=== PATIENT | female | born 1985 | race Caucasian/White ===

== ENCOUNTER 2018-03-23 22:03 | Emergency (ER) | payer BC ==
[~2018-03-23] VITALS: Ht 180.3 cm; Wt 81.8 kg
[~2018-03-23 22:03] MED LIST: NO HOME MEDICATIONS; ULTRAM 50MG TAB50 MG PO; ZOFRAN 4MG T4 MG/TAB PO
[2018-03-24] MEDS ORDERED: TORADOL 10MG TA10 MG PO (00:05)
[2018-03-24 00:13] LABS: COLLECTION METHOD CLEAN CATCH
[2018-03-24 00:14] LABS: BASO # 0.1 (0.0-0.2); BASO % 0.6 % (0.0-2.0); EOS # 0.3 (0.0-0.7); EOS % 1.4 % (0-4.0); GRAN # 12.6 (1.4-6.5); HEMATOCRIT 39.2 % (37.0-47.0); HEMOGLOBIN 13.5 g/dl (12.5-16.0); LYMPH # 4.9 (1.2-3.4); LYMPH % 25.3 % (20.0-51.0); MEAN CELL VOLUME 85 fl (80.0-100.0); MEAN CORPUSCULAR HEMOGLOBIN 29 pg (27.0-31.0); MEAN CORPUSCULAR HGB CONC 34 g/dl (33.0-37.0); MEAN PLATELET VOLUME 9.4 fl (7.4-10.4); MONO # 1.4 (0.1-0.6); MONO % 7.3 % (1.7-9.3); PLATELET COUNT 303 K/mm3 (130-400); RED BLOOD COUNT 4.62 M/mm3 (4.10-5.30); REDCELL DISTRIBUTION WIDTH-CV 12.6 % (11.5-14.5)
[2018-03-24 00:25] LABS: BILIRUBIN,TOTAL 0.2 mg/dL (0.0-1.0); C-REACTIVE PROTEIN 3.6 mg/dL (0.0-0.9); CREATININE, serum 0.56 mg/dL (0.52-1.25); POTASSIUM 3.8 mmol/L (3.4-5.0); TOTAL PROTEIN 7.7 gm/dL (6.4-8.2)
[2018-03-24 00:32] LABS: PH 8 (5-8); SQUAMOUS EPITHELIAL 0-2 /hpf; URINE APPEARANCE Clear; URINE BACTERIA Rare /hpf; URINE BILIRUBIN Negative (NEGATIVE); URINE BLOOD 1+ (NEGATIVE); URINE COLOR Yellow; URINE GLUCOSE Negative (NEGATIVE); URINE KETONE Negative (NEGATIVE); URINE LEUKOCYTE ESTERASE Negative (NEGATIVE); URINE NITRATE Negative (NEGATIVE); URINE PROTEIN(semi-quant) Negative (NEGATIVE); URINE RBC 0-2 /hpf; URINE UROBILINOGEN Negative (NEGATIVE)
[2018-03-24 02:05] VITALS: BP 110/66; PULSE 84; TEMP 98.9
== END 2018-03-24 02:05 | disposition home or self-care (01) ==
LOC: COL.ER 22:03
PROVIDERS: Nurse Practitioner
DX: R10.31 Right lower quadrant pain (principal); F17.210 Nicotine dependence, cigarettes, uncomplicated; Z86.73 Personal history of transient ischemic attack (TIA), and cerebral infarction without residual deficits; Z90.710 Acquired absence of both cervix and uterus; Z90.89 Acquired absence of other organs; Z88.5 Allergy status to narcotic agent
CPT/HCPCS: Q9967

== ENCOUNTER 2018-05-20 14:31 | Emergency (ER) | payer BC ==
[~2018-05-20] VITALS: Ht 180.3 cm; Wt 81.8 kg
[~2018-05-20 14:31] MED LIST changes: +TORADOL 10MG TA10 MG PO
[2018-05-20 14:39] VITALS: TEMP 99
[2018-05-20] MEDS ORDERED: PENTASA500 MG PO (14:54)
[2018-05-20 15:19] LABS: COLLECTION METHOD CLEAN CATCH
[2018-05-20 15:33] LABS: BASO # 0.1 (0.0-0.2); BASO % 0.7 % (0.0-2.0); EOS # 0.2 (0.0-0.7); EOS % 1.6 % (0-4.0); GRAN # 7.3 (1.4-6.5); GRAN % 59.3 % (42.2-75.2); HEMATOCRIT 40.8 % (37.0-47.0); HEMOGLOBIN 13.8 g/dl (12.5-16.0); LYMPH # 3.7 (1.2-3.4); LYMPH % 30.2 % (20.0-51.0); MEAN CELL VOLUME 86 fl (80.0-100.0); MEAN CORPUSCULAR HEMOGLOBIN 29 pg (27.0-31.0); MEAN CORPUSCULAR HGB CONC 34 g/dl (33.0-37.0); MEAN PLATELET VOLUME 9.6 fl (7.4-10.4); MONO % 7.9 % (1.7-9.3); PLATELET COUNT 282 K/mm3 (130-400); RED BLOOD COUNT 4.76 M/mm3 (4.10-5.30); REDCELL DISTRIBUTION WIDTH-CV 12.6 % (11.5-14.5)
[2018-05-20 15:38] LABS: MUCOUS Present /lpf; PH 6 (5-8); URINE APPEARANCE Clear; URINE BACTERIA None Seen /hpf; URINE BILIRUBIN Negative (NEGATIVE); URINE BLOOD 2+ (NEGATIVE); URINE COLOR Yellow; URINE GLUCOSE Negative (NEGATIVE); URINE KETONE Negative (NEGATIVE); URINE LEUKOCYTE ESTERASE Negative (NEGATIVE); URINE NITRATE Negative (NEGATIVE); URINE PROTEIN(semi-quant) Negative (NEGATIVE); URINE UROBILINOGEN Negative (NEGATIVE)
[2018-05-20 15:40] LABS: ALBUMIN 4.1 gm/dL (3.5-5.0); BILIRUBIN,TOTAL 0.3 mg/dL (0.0-1.0); C-REACTIVE PROTEIN 1.3 mg/dL (0.0-0.9); CALCIUM 9.2 mg/dL (8.4-10.2); CREATININE, serum 0.57 mg/dL (0.52-1.25); POTASSIUM 3.6 mmol/L (3.4-5.0); TOTAL PROTEIN 7.3 gm/dL (6.4-8.2)
[2018-05-20 16:39] VITALS: BP 105/69
[2018-05-20 16:56] VITALS: PULSE 79
[2018-05-20] MEDS ORDERED: ZOFRAN ODT4 MG PO (17:00)
== END 2018-05-20 17:09 | disposition home or self-care (01) ==
LOC: COL.ER 14:31
PROVIDERS: Emergency Medicine
DX: K50.90 Crohn's disease, unspecified, without complications (principal); R11.2 Nausea with vomiting, unspecified; F17.210 Nicotine dependence, cigarettes, uncomplicated; Z90.710 Acquired absence of both cervix and uterus; Z90.89 Acquired absence of other organs; Z98.51 Tubal ligation status; Z88.8 Allergy status to other drugs, medicaments and biological substances
CPT/HCPCS: J1885; J2405; J7030; Q9967

== ENCOUNTER → 2018-06-07 | Outpatient (CLI) | payer BC ==
[~2018-06-07] MED LIST changes: +PENTASA500 MG PO; +ZOFRAN ODT4 MG PO
== END ==
LOC: COL.RAD 06:31
DX: K50.90 Crohn's disease, unspecified, without complications (principal); K29.70 Gastritis, unspecified, without bleeding; K92.1 Melena; R11.0 Nausea; R19.7 Diarrhea, unspecified; R10.9 Unspecified abdominal pain; R63.0 Anorexia
CPT/HCPCS: A9541

== ENCOUNTER → 2018-06-08 | Outpatient (CLI) | payer BC | LOC: COL.RAD 07:14 | DX: K50.90 Crohn's disease, unspecified, without complications (principal); K29.70 Gastritis, unspecified, without bleeding; K92.1 Melena; R63.0 Anorexia ==

== ENCOUNTER → 2018-07-26 | Outpatient (CLI) | payer BC | LOC: COL.RAD 07:03 | DX: K50.90 Crohn's disease, unspecified, without complications (principal); K29.70 Gastritis, unspecified, without bleeding | CPT/HCPCS: A9537 ==

== ENCOUNTER 2019-05-26 14:22 | Emergency (ER) | payer BC, MEDICARE ==
[~2019-05-26] VITALS: Ht 180.3 cm; Wt 81.8 kg
[2019-05-26 14:35] VITALS: BP 126/79
[2019-05-26 14:45] LABS: COLLECTION METHOD CLEAN CATCH
[2019-05-26 14:56] LABS: MUCOUS Present /lpf; PH 6 (5-8); URINE APPEARANCE Clear; URINE BACTERIA Many /hpf; URINE BILIRUBIN Negative (NEGATIVE); URINE BLOOD 2+ (NEGATIVE); URINE COLOR Yellow; URINE GLUCOSE Negative (NEGATIVE); URINE KETONE Negative (NEGATIVE); URINE LEUKOCYTE ESTERASE Negative (NEGATIVE); URINE NITRATE Negative (NEGATIVE); URINE PROTEIN(semi-quant) Negative (NEGATIVE); URINE UROBILINOGEN Negative (NEGATIVE)
[2019-05-26] MEDS ORDERED: HUMIRA(CF)40 MG/0.4 SQ (14:56)
[2019-05-26] MEDS ORDERED: AMOXICILLIN/CLA1 TA1 PO (14:57)
[2019-05-26] MEDS ORDERED: CRESTOR 10MG10 MG PO (14:58)
[2019-05-26] MEDS ORDERED: PLAVIX 75MG TAB75 MG PO (14:58)
[2019-05-26] MEDS ORDERED: NITROSTAT0.3 MG SL (14:59)
[2019-05-26] MEDS ORDERED: PRILOSEC 20MG20 MG PO (15:01)
[2019-05-26 15:35] LABS: BASO # 0.1 (0.0-0.2); BASO % 0.5 % (0.0-2.0); EOS # 0.2 (0.0-0.7); EOS % 1.4 % (0-4.0); GRAN # 7.8 (1.4-6.5); GRAN % 58.3 % (42.2-75.2); HEMATOCRIT 42.9 % (37.0-47.0); HEMOGLOBIN 14.5 g/dl (12.5-16.0); LYMPH # 4.2 (1.2-3.4); LYMPH % 31.7 % (20.0-51.0); MEAN CELL VOLUME 87 fl (80.0-100.0); MEAN CORPUSCULAR HEMOGLOBIN 29 pg (27.0-31.0); MEAN CORPUSCULAR HGB CONC 34 g/dl (33.0-37.0); MEAN PLATELET VOLUME 9.7 fl (7.4-10.4); MONO % 7.7 % (1.7-9.3); PLATELET COUNT 283 K/mm3 (130-400); RED BLOOD COUNT 4.94 M/mm3 (4.10-5.30); REDCELL DISTRIBUTION WIDTH-CV 12.4 % (11.5-14.5)
[2019-05-26 15:50] LABS: ALBUMIN 4.5 gm/dL (3.5-5.0); BILIRUBIN,TOTAL 0.1 mg/dL (0.0-1.0); CALCIUM 9.3 mg/dL (8.4-10.2); CREATININE, serum 0.53 (0.52-1.25); POTASSIUM 3.9 mmol/L (3.4-5.0); TOTAL PROTEIN 7.6 gm/dL (6.4-8.2)
[2019-05-26 17:28] VITALS: PULSE 75; TEMP 97.8
== END 2019-05-26 17:29 | disposition home or self-care (01) ==
LOC: COL.ER 14:22
PROVIDERS: Emergency Medicine; Family Medicine
DX: R82.71 Bacteriuria (principal); K50.90 Crohn's disease, unspecified, without complications; F17.210 Nicotine dependence, cigarettes, uncomplicated; Z87.442 Personal history of urinary calculi; Z90.710 Acquired absence of both cervix and uterus; Z90.89 Acquired absence of other organs; Z79.02 Long term (current) use of antithrombotics/antiplatelets
CPT/HCPCS: A4216; J0696; J2405; J3010; J7030; Q9967

== ENCOUNTER → 2019-12-03 | Outpatient (CLI) | payer MEDICARE ==
[~2019-12-03] MED LIST changes: +AMOXICILLIN/CLA1 TA1 PO; +CRESTOR 10MG10 MG PO; +HUMIRA(CF)40 MG/0.4 SQ; +NITROSTAT0.3 MG SL; +PLAVIX 75MG TAB75 MG PO; +PRILOSEC 20MG20 MG PO
== END ==
LOC: COL.LAB 11:56
DX: K50.90 Crohn's disease, unspecified, without complications (principal)

== ENCOUNTER 2019-12-09 16:05 | Emergency (ER) | payer MEDICARE ==
[~2019-12-09] VITALS: Ht 180.3 cm; Wt 81.4 kg
[2019-12-09 16:15] VITALS: TEMP 98.5
[2019-12-09 17:31] LABS: BASO # 0.1 (0.0-0.2); BASO % 0.7 % (0.0-2.0); EOS # 0.2 (0.0-0.7); EOS % 1.9 % (0-4.0); GRAN % 51.9 % (42.2-75.2); HEMATOCRIT 39.3 % (37.0-47.0); LYMPH # 4.4 (1.2-3.4); LYMPH % 37.7 % (20.0-51.0); MEAN CELL VOLUME 88 fl (80.0-100.0); MEAN CORPUSCULAR HEMOGLOBIN 29 pg (27.0-31.0); MEAN CORPUSCULAR HGB CONC 33 g/dl (33.0-37.0); MEAN PLATELET VOLUME 9.6 fl (7.4-10.4); MONO # 0.9 (0.1-0.6); MONO % 7.5 % (1.7-9.3); PLATELET COUNT 265 K/mm3 (130-400); RED BLOOD COUNT 4.47 M/mm3 (4.10-5.30); REDCELL DISTRIBUTION WIDTH-CV 12.6 % (11.5-14.5)
[2019-12-09 17:43] LABS: ALANINE AMINOTRANSFERASE 32 U/L (9-52); ALBUMIN 4.2 gm/dL (3.5-5.0); ALKALINE PHOSPHATASE 83 U/L (50-136); ANION GAP 9 mmol/L (7-16); AST,SGOT 27 U/L (15-37); BILIRUBIN,TOTAL 0.2 mg/dL (0.0-1.0); BLOOD UREA NITROGEN 8 mg/dL (7-17); CALCIUM 8.9 mg/dL (8.4-10.2); CARBON DIOXIDE 24 mmol/L (22-30); CHLORIDE 108 mmol/L (98-107); CREATININE, serum 0.55 (0.52-1.25); GLUCOSE 92 mg/dL (74-106); POTASSIUM 3.5 mmol/L (3.4-5.0); SODIUM 141 mmol/L (137-145); TOTAL PROTEIN 6.9 gm/dL (6.4-8.2)
[2019-12-09 17:43] LABS: STREP SCREEN NEGATIVE
[2019-12-09 17:45] LABS: C-REACTIVE PROTEIN < 0.5 mg/dL (0.0-0.9)
[2019-12-09] MEDS ORDERED: ZITHROMAX 250M250 MG PO (18:41)
[2019-12-09] MEDS ORDERED: PERCOCET 325 MG1 TA2 PO (18:41)
[2019-12-09 19:06] VITALS: BP 111/77; PULSE 86
== END 2019-12-09 19:06 | disposition home or self-care (01) ==
LOC: COL.ER 16:05
PROVIDERS: Emergency Medicine
DX: J20.9 Acute bronchitis, unspecified (principal); K50.90 Crohn's disease, unspecified, without complications; F17.210 Nicotine dependence, cigarettes, uncomplicated; Z90.710 Acquired absence of both cervix and uterus; Z79.02 Long term (current) use of antithrombotics/antiplatelets
CPT/HCPCS: J7030

== ENCOUNTER 2020-02-22 09:22 | Day surgery (SDC) | payer MEDICARE ==
[~2020-02-22] VITALS: Ht 180.3 cm; Wt 81.0 kg
[2020-02-22] VITALS (8 sets, daily range): BP systolic 91–116; BP diastolic 57–96; PULSE 61–79; TEMP 98.1
[~2020-02-22 09:22] MED LIST changes: +PERCOCET 325 MG1 TA2 PO; +ZITHROMAX 250M250 MG PO
[2020-02-22 10:05] LABS: HEMATOCRIT 40.2 % (37.0-47.0); HEMOGLOBIN 13.7 g/dl (12.5-16.0); MEAN CELL VOLUME 86 fl (80.0-100.0); MEAN CORPUSCULAR HEMOGLOBIN 29 pg (27.0-31.0); MEAN CORPUSCULAR HGB CONC 34 g/dl (33.0-37.0); MEAN PLATELET VOLUME 9.6 fl (7.4-10.4); PLATELET COUNT 264 K/mm3 (130-400); RED BLOOD COUNT 4.67 M/mm3 (4.10-5.30); REDCELL DISTRIBUTION WIDTH-CV 12.5 % (11.5-14.5)
[2020-02-22 10:20] LABS: INR 1.1 (0.8-3.0); PROTHROMBIN TIME 12.1 SECONDS (9.7-12.8)
[2020-02-22 10:21] LABS: CALCIUM 8.9 mg/dL (8.4-10.2); CREATININE, serum 0.51 (0.52-1.25); POTASSIUM 3.9 mmol/L (3.4-5.0)
[2020-02-22 10:22] LABS: PARTIAL THROMBOPLASTIN TIME 37.2 SECONDS (26.0-37.0)
--- NOTE | 2020-02-22 12:15 | NUR ---
PT RECIEVED FROM [facility] VIA BED, ALERT AND ORIENATED X3, CALL LIGHT IN REACH, PT USES PHONE TO CALL FAMILY. TAKES JUICE, AND MEAL ORDERED
--- NOTE | 2020-02-22 13:00 | NUR ---
PT WAS UP ON BSC WITH ASSIST, SAT UP IN BED, ATE LUNCH, NO CHANGES OR C/O
--- NOTE | 2020-02-22 14:15 | NUR ---
RELEASE STARTED ON TR BAND, 2CC INCREMENTS OVER 15 MIN WITH NO BLEEDING, BANDAID OVER SITE, PT STATES SITE IS SORE. REVIEWED DISCHARGE INST. WITH PT ON FOLLOWUP APPT NEXT WEEK, PT WILL CALL OFFICE ON . PT IS TO STOP PLAVIX NOW, AND NO OTHER MED CHANGES. REVIEWED SITE CARE AND ACTIVITY WITH VERBAL UNDERSTANDING.
--- NOTE | 2020-02-22 14:45 | NUR ---
PT UP IN ROOM, IV D'CD INTACT, RADIAL SITE WITH DRESSING IS CLEAN AND DRY, DISCHARGED AT 1500 VIA W/C TO CAR WITH FAMILY
== END 2020-02-22 15:00 | disposition home or self-care (01) ==
LOC: COL.CAR 09:22
PROVIDERS: Internal Medicine Interventional Cardiology
DX: I20.9 Angina pectoris, unspecified (principal); R94.39 Abnormal result of other cardiovascular function study; E78.5 Hyperlipidemia, unspecified; K76.89 Other specified diseases of liver; F17.210 Nicotine dependence, cigarettes, uncomplicated; Z88.5 Allergy status to narcotic agent; Z88.8 Allergy status to other drugs, medicaments and biological substances; Z87.74 Personal history of (corrected) congenital malformations of heart and circulatory system; Z79.02 Long term (current) use of antithrombotics/antiplatelets
CPT/HCPCS: J1644; J2250; J2405; J3010

== ENCOUNTER 2021-06-16 07:15 | Emergency (ER) | payer MEDICARE ==
[~2021-06-16] VITALS: Ht 180.3 cm; Wt 79.5 kg
[2021-06-16 07:22] VITALS: TEMP 97.6
[2021-06-16 07:46] LABS: HEMATOCRIT 41.7 % (37.0-47.0); HEMOGLOBIN 14.5 g/dl (12.5-16.0); MEAN CELL VOLUME 86 fl (80.0-100.0); MEAN CORPUSCULAR HEMOGLOBIN 30 pg (27.0-31.0); MEAN CORPUSCULAR HGB CONC 35 g/dl (33.0-37.0); MEAN PLATELET VOLUME 9.7 fl (7.4-10.4); PLATELET COUNT 291 K/mm3 (130-400); RED BLOOD COUNT 4.87 M/mm3 (4.10-5.30); REDCELL DISTRIBUTION WIDTH-CV 12.6 % (11.5-14.5)
[2021-06-16 07:49] LABS: COLLECTION METHOD CLEAN CATCH
[2021-06-16 07:55] LABS: ALBUMIN 4.4 gm/dL (3.5-5.0); BILIRUBIN,TOTAL 0.4 mg/dL (0.0-1.0); CREATININE, serum 0.6 (0.52-1.25); POTASSIUM 3.7 mmol/L (3.4-5.0); TOTAL PROTEIN 7.6 gm/dL (6.4-8.2)
[2021-06-16 08:09] LABS: MUCOUS Present /lpf; PH 5 (5-8); SQUAMOUS EPITHELIAL 0-2 /hpf; URINE APPEARANCE Hazy; URINE BACTERIA None Seen /hpf; URINE BILIRUBIN Negative (NEGATIVE); URINE BLOOD 3+ (NEGATIVE); URINE COLOR Yellow; URINE GLUCOSE Negative (NEGATIVE); URINE KETONE Negative (NEGATIVE); URINE LEUKOCYTE ESTERASE Negative (NEGATIVE); URINE NITRATE Negative (NEGATIVE); URINE PROTEIN(semi-quant) Negative (NEGATIVE); URINE UROBILINOGEN Negative (NEGATIVE)
[2021-06-16 08:35] LABS: BAND 7 % (0-10); EOSINOPHIL 2 % (0-4); LYMPHOCYTE 26 % (20.0-51.0); NEUTROPHILS 60 % (42.0-75.2); PLATELET ESTIMATE NORMAL (NORMAL)
[2021-06-16] MEDS ORDERED: PERCOCET 325 MG1 TA2 PO (09:32)
[2021-06-16] MEDS ORDERED: ZOFRAN ODT4 MG PO (09:32)
[2021-06-16 09:50] VITALS: BP 118/61; PULSE 80
== END 2021-06-16 09:52 | disposition home or self-care (01) ==
LOC: COL.ER 07:15
PROVIDERS: Family Medicine
DX: K50.90 Crohn's disease, unspecified, without complications (principal); K52.9 Noninfective gastroenteritis and colitis, unspecified; Z90.710 Acquired absence of both cervix and uterus; Z90.49 Acquired absence of other specified parts of digestive tract
CPT/HCPCS: J1170; J2405; J7120; Q9967

== ENCOUNTER 2024-06-10 13:25 | Emergency (ER) | payer MEDICARE ==
[~2024-06-10] VITALS: Ht 180.3 cm; Wt 81.8 kg
[2024-06-10 13:31] VITALS: TEMP 97.9
[2024-06-10 13:57] LABS: BASO # 0.2 K/mm3 (0.0-0.2); EOS # 0.3 K/mm3 (0.0-0.7); EOS % 1.7 % (0.0-4.0); GRAN % 53.2 % (42.2-75.2); HEMATOCRIT 43.1 % (37.0-47.0); HEMOGLOBIN 14.6 g/dl (12.5-16.0); LYMPH # 5.2 K/mm3 (1.2-3.4); MEAN CELL VOLUME 88 fl (80.0-100.0); MEAN CORPUSCULAR HEMOGLOBIN 30 pg (27-31); MEAN CORPUSCULAR HGB CONC 34 g/dl (33.0-37.0); MEAN PLATELET VOLUME 9.2 fl (7.4-10.4); MONO # 1.3 K/mm3 (0.1-0.6); MONO % 8.7 % (1.7-9.3); PLATELET COUNT 339 K/mm3 (130-400); RED BLOOD COUNT 4.91 M/mm3 (4.10-5.30)
[2024-06-10 14:12] LABS: ALBUMIN 3.7 g/dL (3.5-5.0); BILIRUBIN,TOTAL 0.4 mg/dL (0.2-1.2); CALCIUM 8.5 mg/dL (8.4-10.2); CREATININE, serum 0.71 mg/dL (0.57-1.11); POTASSIUM 3.4 mEq/L (3.5-4.5); TOTAL PROTEIN 6.9 g/dl (6.2-8.1)
[2024-06-10 14:18] LABS: TROPONIN-I 0.011 ng/mL (0.00-0.033)
[2024-06-10 16:47] VITALS: BP 115/83; PULSE 70
== END 2024-06-10 16:57 | disposition home or self-care (01) ==
LOC: COL.ER 13:25
PROVIDERS: Personal Emergency Response Attendant
DX: R07.89 Other chest pain (principal); R00.2 Palpitations

== ENCOUNTER → 2024-07-05 | Outpatient (CLI) | payer MEDICARE | LOC: MC.RAD 08:53 | DX: Z12.31 Encounter for screening mammogram for malignant neoplasm of breast (principal); N63.10 Unspecified lump in the right breast, unspecified quadrant; Z85.3 Personal history of malignant neoplasm of breast; Z98.890 Other specified postprocedural states ==